=== PATIENT | female | born 1965 | race Caucasian/White ===

== ENCOUNTER 2019-02-06 11:47 | Outpatient (CLI) | payer OTHER ==
--- NOTE | 2019-02-06 13:43 | RAD ---
TWO VIEWS LUMBAR SPINE: DATE: 02/06/2019. HISTORY: Disability examination. The patient states back pain and bilateral leg pain. COMPARISON: None available. FINDINGS: There are 5 [id number] lumbar-type vertebral bodies. The vertebral body heights are within norm al limits. There is narrowing of the L4-5 intervertebral disk space with a few minimal osteophytes s een scattered within the lumbar spine. Facet degenerative changes are seen in the lower lumbar spine . No fracture or subluxation is seen. Phleboliths overlie the pelvis. IMPRESSION: Degenerative changes in the lower lumbar spine. No fracture or subluxation is seen. POS: [id number]
== END 2019-02-06 11:48 | disposition home or self-care (01) ==
LOC: BICRAD 11:47
PROVIDERS: ATTEND Psychiatry & Neurology Psychiatry
DX: Z02.71 Encounter for disability determination (principal); M47.816 Spondylosis without myelopathy or radiculopathy, lumbar region
CPT/HCPCS: 72100